=== PATIENT | female | born 1980 | race Caucasian/White ===

== ENCOUNTER 2017-07-08 10:26 | Inpatient (IN) | payer MEDICARE, OTHER ==
[~2017-07-08] VITALS: Ht 167.6 cm; Wt 79.3 kg
[~2017-07-08 10:26] MED LIST: Z.0.NO CURRENT MEDS
[2017-07-08 10:51] VITALS: BP 127/77; PULSE 83; RESP 16; TEMP 98.6
--- NOTE | 2017-07-08 11:37 | PD ---
HPI Chief Complaint: Psychiatric Symptoms Time Seen by Provider: 11:22 Travel History International Travel<30 days: No Contact w/Intl Traveler<30days: No Traveled to known affect area: No History of Present Illness HPI The patient was seen and examined in the presence of the nurse. This patient presents under police Scruggs act. She has been feeling depressed and suicidal. She was found in the backyard with a rope. She put the rope around her neck. She did not actually hang or jump from a height. She does not have any neck pain or symptoms. She denies physical complaint. Her psychiatric symptoms are moderate to severe. No alleviating factors. No exacerbating factors. Duration is several months. She denies any alcohol or drug use today. She admits to drinking a few beers last night. PFSH Past Medical History Blood Disorders: No Depression: Yes Cancer: No Cardiovascular Problems: No Genitourinary: No Immune Disorder: No Musculoskeletal: No Neurologic: No Psychiatric: Yes Reproductive: Yes Respiratory: No ?: Not LMP: 06/16/17 Past Surgical History Other Surgery: Yes (CARPAL TUNNEL SX) Social History Alcohol Use: No Tobacco Use: Yes (3-5 CIGARETTES DAILY) Substance Use: No Allergies-Medications (Allergen,Severity, Reaction): Coded Allergies: bupropion (Unverified Allergy, Severe, 10/30/16) quetiapine (Unverified Allergy, Intermediate, RASH ON THE NECK, 10/30/16) Uncoded Allergies: WELLBUTRIN (Allergy, Mild, Tachycardia, 02/26/09) Reported Meds & Prescriptions Reported Meds & Active Scripts Active No Active Prescriptions or Reported Medications Review of Systems General / Constitutional: No: Fever Eyes: No: Visual changes HENT: No: Headaches Cardiovascular: No: Chest Pain or Discomfort Respiratory: No: Shortness of Breath Gastrointestinal: No: Abdominal Pain Genitourinary: No: Dysuria Musculoskeletal: No: Pain Skin: No Rash Neurologic: No: Weakness Psychiatric: Positive: Depression, Suicidal Ideations Endocrine: No: Polydipsia Hematologic/Lymphatic: No: Easy Bruising Physical Exam Narrative GENERAL: Well-nourished, well-developed patient in no apparent distress. SKIN: Focused skin assessment reveals no rash and nodules. Skin is Warm and dry. HEAD: Atraumatic. Normocephalic. EYES: Pupils equal and round. No scleral icterus. No injection or drainage. ENT: No nasal bleeding or discharge. Mucous membranes pink and moist. NECK: Trachea midline. No JVD. No midline tenderness. No swelling or bruising. There is a minimal erythematous linear iram on the right side CARDIOVASCULAR: Regular rate and rhythm. No murmur appreciated. RESPIRATORY: No accessory muscle use. Clear to auscultation. Breath sounds equal bilaterally. GASTROINTESTINAL: Abdomen soft, non-tender, nondistended. Hepatic and splenic margins not palpable. MUSCULOSKELETAL: No obvious deformities. No clubbing. No cyanosis. No edema. NEUROLOGICAL: Awake and alert. No obvious cranial nerve deficits. Motor grossly within normal limits. Normal speech. PSYCHIATRIC: Depressed flat mood and affect; insight and judgment normal. Data Data Last Documented VS Vital Signs Date Time Temp Pulse Resp B/P (MAP) Pulse Ox O2 Delivery O2 Flow Rate FiO2 07/08/17 10:51 98.6 83 16 127/77 (94) Orders Orders Complete Blood Count With Diff (07/08/17 11:17) Comprehensive Metabolic Panel (07/08/17 11:17) Psych Screen (07/08/17 11:17) Drug Screen, Random Urine (07/08/17 11:17) Alcohol (Ethanol) (07/08/17 11:17) Ed Urine Pregnancytest Poc (07/08/17 11:37) Labs Laboratory Tests Test 07/08/17 10:55 07/08/17 11:36 White Blood Count 7.7 TH/MM3 Red Blood Count 4.90 MIL/MM3 Hemoglobin 15.3 GM/DL Hematocrit 43.1 % Mean Corpuscular Volume 88.1 FL Mean Corpuscular Hemoglobin 31.3 PG Mean Corpuscular Hemoglobin Concent 35.5 % Red Cell Distribution Width 11.9 % Platelet Count 241 TH/MM3 Mean Platelet Volume 9.1 FL Neutrophils (%) (Auto) 67.9 % Lymphocytes (%) (Auto) 24.8 % Monocytes (%) (Auto) 6.8 % Eosinophils (%) (Auto) 0.2 % Basophils (%) (Auto) 0.3 % Neutrophils # (Auto) 5.2 TH/MM3 Lymphocytes # (Auto) 1.9 TH/MM3 Monocytes # (Auto) 0.5 TH/MM3 Eosinophils # (Auto) 0.0 TH/MM3 Basophils # (Auto) 0.0 TH/MM3 CBC Comment DIFF FINAL Differential Comment Blood Urea Nitrogen 14 MG/DL Creatinine 0.78 MG/DL Random Glucose 92 MG/DL Total Protein 7.7 GM/DL Albumin 4.3 GM/DL Calcium Level 9.3 MG/DL Alkaline Phosphatase 63 U/L Aspartate Amino Transf (AST/SGOT) 16 U/L Alanine Aminotransferase (ALT/SGPT) 25 U/L Total Bilirubin 0.4 MG/DL Sodium Level 141 MEQ/L Potassium Level 3.8 MEQ/L Chloride Level 106 MEQ/L Carbon Dioxide Level 29.5 MEQ/L Anion Gap 6 MEQ/L Estimat Glomerular Filtration Rate 82 ML/MIN Ethyl Alcohol Level LESS THAN 3 MG/DL Urine Opiates Screen NEG Urine Barbiturates Screen NEG Urine Amphetamines Screen NEG Urine Benzodiazepines Screen NEG Urine Cocaine Screen NEG Urine Cannabinoids Screen POS MDM Medical Decision Making Medical Screen Exam Complete: Yes Emergency Medical Condition: Yes Medical Record Reviewed: Yes Differential Diagnosis Suicidal ideation, depression, adjustment reaction Narrative Course I have reviewed the patient's electronic medical record. Patient is been here before for suicidal ideation when she tried to cut her wrist I have ordered medical clearance workup to include labs and tox screen Psychiatric evaluation has been ordered as she is here under the Scruggs act Medical workup is negative. is negative. Tox screen positive for marijuana but labs are normal patient is awaiting psychiatric evaluation. Disposition will be per psychiatry. Diagnosis Primary Impression: Depression with suicidal ideation Scripts No Active Prescriptions or Reported Meds Kee Shea MD Jul 08, 2017 11:37
[2017-07-08 11:40] LABS: AUTOMATED NEUTROPHIL # 5.2 TH/MM3 (1.8-7.7); BASOPHIL % 0.3 % (0.0-2.0); EOSINOPHIL % 0.2 % (0.0-4.0); HEMATOCRIT 43.1 % (35.0-46.0); HEMOGLOBIN 15.3 GM/DL (11.6-15.3); LYMPH % 24.8 % (9.0-44.0); LYMPHOCYTE # 1.9 TH/MM3 (1.0-4.8); MEAN CELL VOLUME 88.1 FL (80.0-100.0); MEAN CORPUSCULAR HEMOGLOBIN 31.3 PG (27.0-34.0); MEAN CORPUSCULAR HGB CONC 35.5 % (32.0-36.0); MEAN PLATELET VOLUME 9.1 FL (7.0-11.0); MONO % 6.8 % (0.0-8.0); MONOCYTE # 0.5 TH/MM3 (0-0.9); NEUT % 67.9 % (16.0-70.0); PLATELET COUNT 241 TH/MM3 (150-450); RED CELL DISTRIBUTION WIDTH 11.9 % (11.6-17.2); WHITE BLOOD COUNT 7.7 TH/MM3 (4.0-11.0)
[2017-07-08 11:54] LABS: ALBUMIN 4.3 GM/DL (3.4-5.0); AST (GOT) 16 U/L (15-37); BICARBONATE 29.5 MEQ/L (21.0-32.0); BLOOD UREA NITROGEN 14 MG/DL (7-18); CALCIUM 9.3 MG/DL (8.5-10.1); CHLORIDE 106 MEQ/L (98-107); CREATININE 0.78 MG/DL (0.50-1.00); GLOMERULAR FILTRATION RATE 82 ML/MIN (>89); GLUCOSE,RANDOM 92 MG/DL (74-106); SODIUM (NA) 141 MEQ/L (136-145)
[2017-07-08 11:56] LABS: ALKALINE PHOSPHATASE 63 U/L (45-117); ALT (GPT) 25 U/L (10-53); TOTAL BILIRUBIN ADULT 0.4 MG/DL (0.2-1.0); TOTAL PROTEIN 7.7 GM/DL (6.4-8.2)
--- NOTE | 2017-07-08 17:26 | PD ---
History of Present Illness Chief Complaint: Psychiatric Symptoms Travel History International Travel<30 Days: No Contact w/Intl Traveler<30days: No Known affected area: No History of Present Illness: Patient is a 37 y/o female with three children , who is currently on disability transported to the Emergency Department by the [place] [employer] under a Scruggs Act. Scruggs Act states, " April was found by her daughter in the back yard of the residence putting a rope around her neck. Karen then left the residence in a vehicle with the rope and told her daughter she was going to find a bridge. Maynor has attempted to cut her wrists in the past." Daniela is in a hospital gown, disheveled with poor eye contact. She is oriented to self, her date of and year. She is unable to tell me the President, where she is and when she last ate. Patient is religiously preoccupied and states," the spirit of has touched me and I must repent and go to hell. " She is internally stimulated and states, "there are demons in the room and they are all around me, I see them." She acknowledges that she hears the spirit talking to her in her ears that they are telling her that her life is over." Normal voice for tone, rate and volume. Motor normal. She is guarded, paranoid, delusional and hesitates to answer questions. Her mood is liable and demonstrates flat affect. Judgement is poor. Concentration is poor. Patient is sitting on the bed "rwandan style" and rocking. Patient is a mother of three children:Soo 8 years old, Mykel 13 years old and Neeta 18 years old. Per report through Triage nurse that spoke with daughter Neeta , patient left the home the other night and left the eight year old unattended. Neeta reports that her mother has been declining and that she is taking risks outside of her character. Neeta was the person who witnessed her mother with the rope. Patient states that she has been under the care of [facility] in the past and recalls being on Seroquel and Depakote. She does recall past incidences of suicidal attempts by means of overdose and attempting to hang herself. I was unable to find a record to collaborate this disclosure. Patient does state, " the demons are here and I want to ." Patient discloses that three months ago she was on pain medications for her neck and back which she discontinued. She states that she is currently under no medications and does not have any allergies.Patient states that both her parents were alcoholics. Her mother is and her mother has not mental illness. Patient has an 8th grade education and has not worked in five years. 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 She smokes 1/4 ppd; occasional alcohol ( beer) and admits to marijuana ( no other illicit drugs). Patient discloses a previous arrest as a teenager for assault/battery, possession of marijuana in which charges were dropped. She has no legal issues pending at this time. UDS negative, except for marijuana. I have attempted to call the Hudson Chen at and the daughter Neeta Chen at with no success. Patient is currently unable to make sound decisions. She has poor concentration and poor judgement. Patient is at medium to high risk of self harm. She verbalizes a suicidal plan to place a rope around her neck because the demons have instructed her to do so. Due to the potential for self - harm the patient will be admitted to the inpatient unit on 2600 for further evaluation and treatment. P Dx: Psychosis ; Substance Use PFSH Past Medical History Blood Disorders: No Depression: Yes Cancer: No Cardiovascular Problems: No Genitourinary: No Immune Disorder: No Musculoskeletal: No Neurologic: No Psychiatric: Yes Reproductive: Yes Respiratory: No ?: Not LMP: 06/16/17 Past Surgical History Other Surgery: Yes (CARPAL TUNNEL SX) Psychiatric History Psychiatric History Hx Psychiatric Treatment: HX 2009 IN [facility] History of Inpatient Treatment: Yes Social History Hx Alcohol Use: No Hx Tobacco Use: Yes (3-5 CIGARETTES DAILY) Hx Substance Use: No Substance Use Type: Nicotine/Cigarettes, Prescription Medications Other Substances Used: HYDROCODONE FOR HEADACHE, AND SOMA FROM A FRIEND, XANAX FOR HEADACHE. Hx of Substance Use Treatment: No Family Psychiatric History Patient states she has been under treatment at [facility] in the past and has been on Seroquel and Depakote. Allergies-Medications (Allergen,Severity, Reaction): Coded Allergies: bupropion (Unverified Allergy, Severe, 10/30/16) quetiapine (Unverified Allergy, Intermediate, RASH ON THE NECK, 10/30/16) Uncoded Allergies: WELLBUTRIN (Allergy, Mild, Tachycardia, 02/26/09) Reported Meds & Prescriptions Reported Meds & Active Scripts Active No Active Prescriptions or Reported Medications Mental Status Examination Appearance: Disheveled Consciousness: Alert Orientation: Person, Date/Time Motor Activity: Normal gait Speech: Hesitant Language: Perseveration Fund of Knowledge: Poor Attention and Concentration: Easily Distracted Memory: Impaired Mood: Sad Affect: Flat Thought Process & Associations: Loose associations, Disorganized Thought Content: Ideas of reference, Hallucinations, Thought blocking, Preoccupations (religiously preoccupied) Hallucination Type: Auditory, Visual (seeing demons and hearing adventist comments to take her life) Suicidal Ideation: Yes Suicidal Plan: Yes Suicidal Intention: Yes Homicidal Ideation: No Homicidal Plan: No Homicidal Intention: No Insight: Poor Judgment: Poor MDM Medical Decision Making Medical Record Reviewed: Yes Assessment/Plan Patient is a 37 year old female who presents with auditory and visual hallucinations. Patient is delusional, paranoid and guarded. She recently left her young child at home alone and has been demonstrating poor judgement. She has poor eye contact, internally stimulated and preoccupied with the bible. She states that the demon is telling her to take her life. Patient is at medium to high risk of self harm. Patient will be admitted for further evaluation and treatment. Orders Orders Complete Blood Count With Diff (07/08/17 11:17) Comprehensive Metabolic Panel (07/08/17 11:17) Psych Screen (07/08/17 11:17) Drug Screen, Random Urine (07/08/17 11:17) Alcohol (Ethanol) (07/08/17 11:17) Ed Urine Pregnancytest Poc (07/08/17 11:37) Results Vital Signs Date Time Temp Pulse Resp B/P (MAP) Pulse Ox O2 Delivery O2 Flow Rate FiO2 07/08/17 10:51 98.6 83 16 127/77 (94) Laboratory Tests Test 07/08/17 10:55 07/08/17 11:36 White Blood Count 7.7 Red Blood Count 4.90 Hemoglobin 15.3 Hematocrit 43.1 Mean Corpuscular Volume 88.1 Mean Corpuscular Hemoglobin 31.3 Mean Corpuscular Hemoglobin Concent 35.5 Red Cell Distribution Width 11.9 Platelet Count 241 Mean Platelet Volume 9.1 Neutrophils (%) (Auto) 67.9 Lymphocytes (%) (Auto) 24.8 Monocytes (%) (Auto) 6.8 Eosinophils (%) (Auto) 0.2 Basophils (%) (Auto) 0.3 Neutrophils # (Auto) 5.2 Lymphocytes # (Auto) 1.9 Monocytes # (Auto) 0.5 Eosinophils # (Auto) 0.0 Basophils # (Auto) 0.0 CBC Comment DIFF FINAL Differential Comment Blood Urea Nitrogen 14 Creatinine 0.78 Random Glucose 92 Total Protein 7.7 Albumin 4.3 Calcium Level 9.3 Alkaline Phosphatase 63 Aspartate Amino Transf (AST/SGOT) 16 Alanine Aminotransferase (ALT/SGPT) 25 Total Bilirubin 0.4 Sodium Level 141 Potassium Level 3.8 Chloride Level 106 Carbon Dioxide Level 29.5 Anion Gap 6 Estimat Glomerular Filtration Rate 82 Ethyl Alcohol Level LESS THAN 3 Urine Opiates Screen NEG Urine Barbiturates Screen NEG Urine Amphetamines Screen NEG Urine Benzodiazepines Screen NEG Urine Cocaine Screen NEG Urine Cannabinoids Screen POS Diagnosis Primary Impression: Depression with suicidal ideation Additional Impressions: Psychosis Substance use disorder Admitting Information Admitting Physician Requests: Admit Prescriptions No Active Prescriptions or Reported Meds Condition: Stable Problem Qualifiers Brooke Landa Jul 08, 2017 17:26
[2017-07-08] MEDS ORDERED: MAGNESIUM HYDROXIDE SUSP 30 ML CUP PO PRN (17:45)
[2017-07-08] MEDS ORDERED: ACETAMINOPHEN 325 MG TAB PO PRN (17:45)
[2017-07-08] MEDS ORDERED: ALUMINUM/MAGNESIUM/SIMETH 30 ML CUP PO PRN (17:45)
[2017-07-08] MEDS: NICOTINE 21 MG/24 HR PATCH T-DERMAL SCH (18:00)
[2017-07-08 20:20] VITALS: BP 117/56; PULSE 63; RESP 20; TEMP 97.2; O2SAT 99
[2017-07-09 05:32] VITALS: BP 115/67; PULSE 61; RESP 16; TEMP 97.9; O2SAT 97
[2017-07-09] MEDS: REMOVE OLD PATCH T-DERMAL SCH (09:00)
[2017-07-09] MEDS: NICOTINE 21 MG/24 HR PATCH T-DERMAL SCH (09:00)
[2017-07-09 09:09] LABS: BICARBONATE 26.9 MEQ/L (21.0-32.0); BLOOD UREA NITROGEN 11 MG/DL (7-18); CALCIUM 9.4 MG/DL (8.5-10.1); CHLORIDE 105 MEQ/L (98-107); CREATININE 0.72 MG/DL (0.50-1.00); GLOMERULAR FILTRATION RATE 90 ML/MIN (>89); GLUCOSE,RANDOM 104 MG/DL (74-106); SODIUM (NA) 141 MEQ/L (136-145)
[2017-07-09 09:10] LABS: CHOLESTEROL 195 MG/DL (120-200)
[2017-07-09 09:12] LABS: CHOLESTEROL/ HDL RATIO 3.94 RATIO; HDL CHOLESTEROL 49.4 MG/DL (40.0-60.0); LDL CHOLESTEROL 119 MG/DL (0-99); TRIGLYCERIDES 134 MG/DL (42-150)
--- NOTE | 2017-07-09 14:06 | HHI.HP ---
Provisional Diagnosis Admission Date Jul 08, 2017 at 17:39 [place] I. 1. Schizophrenia, paranoid type Rule out mood disorder with psychotic features. Rule out psychosis due to a substance. 2. Cannabis abuse [place] II. Deferred Certification of Person's Competence To Provide Express and Informed Consent I have personally examined Daniela Chen , a person being served at [facility] on, Jul 09, 2017 14:06. Express and informed consent means consent voluntarily given in writing, by a competent person, after sufficient explanation and disclosure of the subject matter involved to enable the person to make a knowing and willful decision without any element of force, fraud, deceit, duress, or other form of constraint or coercion. This person is 18 years of age or older, is not now known to be incompetent to consent to treatment with a guardian advocate, and does not have a health care surrogate or proxy currently making medical treatment decisions. I have found this person to be one of the following: [x] Competent to provide express and informed consent, as defined above, for voluntary admission to this facility and is competent to provide express and informed consent for treatment. He/she has the consistent capacity to make well reasoned, willful, and knowing decisions concerning his or her medical or mental health treatment. The person fully and consistently understands the purpose of the admission for examination/placement and is fully capable of personally exercising all rights assured [place] Incompetent to provide express and informed consent to voluntary admission, and this is incompetent to provide express and informed consent to treatment. The person must be transferred to involuntary status and a petition for a guardian advocate filed with the Circuit Court. [] Refusing to provide express and informed consent to voluntary admission but is competent to provide express and informed consent for treatment. The person must be discharged or transferred to involuntary status. Form shall be completed within 24 hours of a person's arrival at the receiving facility and filed in the clinical record of each person: 1. Admitted on a voluntary basis 2. Permitted to provide express and informed consent to his/her own treatment 3. Allowed to transfer from involuntary to voluntary status 4. Prior to permitting a person to consent to his or her own treatment after having been previously found incompetent to consent to treatment. History of Present Illness Capacity: Has Capacity Psych Chief Complaint: Psychosis HPI Mr. Chen is a 37-year-old female with a history of bipolar disorder/ schizophrenia who presented under a Scruggs act by law enforcement alleging that the patient's daughter found her in the yard with a rope around her neck. Patient was seen by the psychiatric nurse practitioner in the ED. Reviewing the electronic medical record, I note that the patient was [place] [address] Harris with a diagnosis of bipolar disorder type II and opiate abuse and was stabilized on Seroquel at that time. Patient seen and examined with nurse and bilingual student tutor. On my examination today, the patient presents as initially fairly lucid, however when allowed to speak in an open-ended fashion discloses fairly extensive druze delusion. She tells me, for example, that "mosque is like wearing glasses and going to the store for soda." She articulates a belief that she has a name, Aminata, which gives her special association with the [place]. She says that she came to this realization by "reading this [place] thing on Susie[ism?]." She says that for the last 3 months she has been able to "read the names and spirits of everyone alive 08/10." She reports that she was trying to kill herself prior to admission because she was receiving commands to do so by "the Father of lies." She reports that she is no longer receiving such messages, and she denies SI/HI now, although she seems decidedly unreliable to contract for safety in a less restrictive setting. She believes that she is a "prophetess" of some sort. Mood has been somewhat depressed, although mood symptoms do not seem particularly severe. Sleep and appetite are reportedly fair. Remainder of the psychiatric ROS is negative. No acute physical complaints. Past psychiatric history: The patient reports a history of bipolar disorder/ schizophrenia. She is not currently under the care of a psychiatrist and takes no psychotropic medications. She denies a history of interval psychiatric admissions since 2008. She does report a history of suicide attempt by cutting about 6 years ago. She denies a history of violent behavior. Family history: Patient notes that her mother was similarly afflicted. She denies family history of suicide. Chemical dependency history: The patient reports that historically she has abused opiates but has been clean from any opiates lately. She has been abusing cannabis. Social history: Patient is with 3 children. 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 She is now on disability. She denies any history. Denies any legal history. Denies any access to guns or firearms. Review of Systems ROS Limitations: Psychotic, Poor Historian Except as stated in HPI: all other systems reviewed are Neg Past Family Social History Coded Allergies: bupropion (Unverified Allergy, Severe, 10/30/16) quetiapine (Unverified Allergy, Intermediate, RASH ON THE NECK, 10/30/16) Uncoded Allergies: WELLBUTRIN (Allergy, Mild, Tachycardia, 02/26/09) Past Medical History Patient denies any past medical history. No Active Prescriptions or Reported Meds Current Medications Medications (Trade) Dose Ordered Sig/Cameron Route Start Time Stop Time Status Last Admin (Tylenol) 650 mg Q4H PRN PO 07/08/17 17:45 (Milk Of Magnesia Liq) 30 ml DAILY PRN PO 07/08/17 17:45 (Mag-Al Plus Susp Liq) 30 ml Q6H PRN PO 07/08/17 17:45 (Habitrol 21 Mg Patch.24 Hr) 1 patch DAILY T-DERMAL 07/08/17 18:00 Miscellaneous Information 1 DAILY T-DERMAL 07/09/17 09:00 Patient's Strengths (min. 2) In a monitored setting. Verbally fluent. Physical Exam Physical examination completed by ED provider. On my examination today, the patient appears to be in no acute physical distress. No motoric abnormalities noted. Labs and vitals reviewed: Vital Signs Vital Signs Date Time Temp Pulse Resp B/P (MAP) Pulse Ox O2 Delivery O2 Flow Rate FiO2 07/09/17 05:32 97.9 61 16 115/67 (83) 97 Lab Results Test 07/09/17 07:51 Blood Urea Nitrogen 11 MG/DL Creatinine 0.72 MG/DL Random Glucose 104 MG/DL Calcium Level 9.4 MG/DL Sodium Level 141 MEQ/L Potassium Level 4.2 MEQ/L Chloride Level 105 MEQ/L Carbon Dioxide Level 26.9 MEQ/L Anion Gap 9 MEQ/L Estimat Glomerular Filtration Rate 90 ML/MIN Triglycerides Level 134 MG/DL Cholesterol Level 195 MG/DL LDL Cholesterol 119 MG/DL HDL Cholesterol 49.4 MG/DL Cholesterol/HDL Ratio 3.94 RATIO ED point of care test negative. Mental Status Examination Appearance: Disheveled Consciousness: Alert Orientation: Person, Place (At least) Motor Activity: Other (No motor abnormalities noted) Speech: Unremarkable Language: Adequate Fund of Knowledge: Adequate, Poor Attention and Concentration: Easily Distracted Memory: Impaired (Psychosis interferes) Mood: Other (Depressed) Affect: Flat Thought Process & Associations: Tangential Thought Content: Ideas of reference, Delusional Hallucination Type: Other (Denies AVH presently) Delusion Type: Other (Adventism) Suicidal Ideation: No Suicidal Plan: No Suicidal Intention: No Homicidal Ideation: No Homicidal Plan: No Homicidal Intention: No Insight: Poor Judgment: Poor Assessment & Plan Problem List: (1) Schizophrenia ICD Codes: F20.9 - Schizophrenia, unspecified (2) Cannabis abuse ICD Codes: F12.10 - Cannabis abuse, uncomplicated Assessment & Plan 37-year-old female with psychiatric history as detailed above who presents under Scruggs act. On my examination today, the patient presents with prominent psychotic symptoms. She does report that her mood is somewhat depressed, although affect of symptoms seem secondary. She makes clear that her presenting suicide attempt was driven by command auditory hallucinations from "the father of lies." Consequently, I think it is likely that she suffers chiefly from a primary psychotic disorder, and she does report a history of schizophrenia, although a mood disorder with psychotic features or a psychosis due to substance are also possible. Patient requires psychiatric hospitalization at this time for safety, observation and stabilization. Admit inpatient. Voluntary status. For psychosis initiate Zyprexa Zydis 10 mg at bedtime with plans to titrate to effect. EKG is sinus rhythm and QTC is not prolonged. Atarax as needed for anxiety. Benadryl as needed for sleep. Cogentin as needed for EPS. R/B/A for medications discussed with patient. Patient is presently denying suicidal ideation and so I think it is reasonable to monitor her on the 2600 unit, although we will have a low threshold to transfer her to the higher acuity unit should there be any evidence of worsening psychosis or behavioral deterioration. Vitals every shift. Counselor to see. Collateral information. Disposition planning. Estimated length of stay: 7-9 days. Discharge Planning Pending psychiatric stabilization Request HC Surrog/Guard Advoc?: No (Not at this time) Problem Qualifiers (1) Schizophrenia: Qualified Codes: F20.0 - Paranoid schizophrenia Nirav Denny MD Jul 09, 2017 14:06
[2017-07-09] MEDS ORDERED: hydrOXYzine HCL 50 MG TAB PO PRN (14:15)
[2017-07-09] MEDS ORDERED: BENZTROPINE MESYLATE 1 MG TAB PO PRN (14:15)
[2017-07-09] MEDS ORDERED: diphenhydrAMINE HCL 50 MG CAP PO PRN (14:15)
[2017-07-09] MEDS ORDERED: BENZTROPINE MESYLATE 2 MG/2 ML VIAL IM PRN (14:15)
[2017-07-09 16:06] LABS: HEMOGLOBIN A1C 4.7 % (4.3-6.0)
[2017-07-09] MEDS ORDERED: NICOTINE 21 MG/24 HR PATCH T-DERMAL PRN (17:30)
[2017-07-09 17:32] VITALS: BP 112/68; PULSE 66; RESP 18; TEMP 98.2; O2SAT 99
[2017-07-09] MEDS: OLANZapine ODT 10 MG TAB PO SCH (21:00)
[2017-07-10 05:58] VITALS: BP 97/53; PULSE 70; RESP 14; TEMP 98.1; O2SAT 97
[2017-07-10] MEDS: REMOVE OLD PATCH T-DERMAL SCH (09:00)
--- NOTE | 2017-07-10 09:19 | EKG ---
Date Performed: 07/09/2017 Time Performed: 14:21:59 PTAGE: 37 years EKG: Sinus rhythm NORMAL ECG PREVIOUS TRACING : 02/23/2004 12.19 DOCTOR: Lucas Long Interpretating Date/Time 07/10/2017 09:18:50
--- NOTE | 2017-07-10 10:19 | HHI.PYPN ---
Subjective Chief Complaint: Psychosis Remarks Patient seen and examined with nurse. Chart reviewed. Case discussed with nursing staff who reports patient refused Zyprexa overnight. Patient has been no behavioral problem on the unit though and has denied suicidal ideation. She is noted by staff to be responding to internal stimuli. On my examination today , the patient remains religiously preoccupied. She says that she refused the Zyprexa because "it would not be worth it to me, if you like, to switch from light to darkness." She reports that she hears the voice of Jose G "08/10 he's with me." She denies any commanding voices, except to "repent." No command auditory hallucinations to hurt self/others. Denies any suicidal or homicidal ideation. No physical complaints. Review of Systems ROS Limitations: Psychotic Except as stated in HPI: all other systems reviewed are Neg Mental Status Examination Appearance: Disheveled Consciousness: Alert Orientation: Person, Place (At least) Motor Activity: Other (No motor abnormalities noted) Speech: Unremarkable Language: Adequate Fund of Knowledge: Adequate, Poor Attention and Concentration: Easily Distracted Memory: Impaired (Psychosis interferes) Mood: Appropriate Affect: Appropriate Thought Process & Associations: Circumstantial Thought Content: Delusional Hallucination Type: Auditory (as above) Delusion Type: Other (Gnosticist) Suicidal Ideation: No Suicidal Plan: No Suicidal Intention: No Homicidal Ideation: No Homicidal Plan: No Homicidal Intention: No Insight: Poor Judgment: Poor Results Labs Labs reviewed. Extended urine toxicology pending. EKG NSR with QTc wnl. Vitals/IOs Vital Signs Date Time Temp Pulse Resp B/P (MAP) Pulse Ox O2 Delivery O2 Flow Rate FiO2 07/10/17 05:58 98.1 70 14 97/53 (17) 97 Assessment & Plan Problem List: (1) Schizophrenia ICD Codes: F20.9 - Schizophrenia, unspecified (2) Cannabis abuse ICD Codes: F12.10 - Cannabis abuse, uncomplicated Assessment & Plan I have encouraged adherence with Zyprexa. Continue Zyprexa as ordered. Counselor to call for collateral. Continue to monitor on the inpatient unit. Continue other medications and care as ordered. Justification for Cont. Inpt. Impairment in reality construction. Monitoring for impairment in safety, none noted. Risk for decompensation in less restrictive environment. Discharge Planning Pending psychiatric stabilization. Request HC Surrog/Guard Advoc?: No (Not at this time) Problem Qualifiers (1) Schizophrenia: Qualified Codes: F20.0 - Paranoid schizophrenia Nirav Denny MD Jul 10, 2017 10:19
[2017-07-10 18:26] VITALS: BP 121/67; PULSE 64; RESP 16; TEMP 98; O2SAT 100
[2017-07-10] MEDS: OLANZapine ODT 10 MG TAB PO SCH (20:57)
[2017-07-11 05:27] VITALS: BP 111/62; PULSE 67; RESP 16; TEMP 97.6; O2SAT 97
[2017-07-11 05:28] VITALS: BP 111/62; PULSE 67; RESP 16; TEMP 97.6; O2SAT 97
[2017-07-11] MEDS: REMOVE OLD PATCH T-DERMAL SCH (09:00)
[2017-07-11] MEDS ORDERED: HALOPERIDOL LACTATE 5 MG/ML AMP IM PRN (14:00)
--- NOTE | 2017-07-11 14:00 | HHI.PYPN ---
Subjective Chief Complaint: Psychosis Remarks Patient seen and examined with nurse. Chart reviewed. Case discussed with nursing staff. Patient refused Zyprexa overnight and refused breakfast this morning per nursing report. She continues to respond to internal stimuli in interactions with nursing. On my examination today, the patient remains internally preoccupied although she insists her hallucinations have "cleared up. " She denies suicidal or homicidal ideation but seems distinctly unreliable to contract for safety. When I ask her about her presenting suicide attempt she replies in a nonsensical fashion saying "that's an 'I need to clean the house' issue." She intends to continue to refuse medications as she does not feel that she needs them. No physical complaints. With patient's permission, obtained collateral information from Phoenix Chen at [phone]. He notes patient has been experiencing psychotic symptoms x ~2 years. He reports patient has a history of opiate dependence and , while intoxicated, had an affair. He notes that patient disclosed this affair to him on De León's day this year, and her recent deterioration seems to have begun shortly thereafter. He reports patient has a previous suicide attempt by cutting. He does report patient has tried Seroquel in the past for her symptoms but notes that her adherence with pharmacotherapy in the community is spotty. He feels that patient is in need of additional stabilization. He is agreeable to acting as healthcare surrogate and is in agreement with the plan as outlined below. Review of Systems ROS Limitations: Psychotic, Poor Historian Except as stated in HPI: all other systems reviewed are Neg Mental Status Examination Appearance: Disheveled Consciousness: Alert Orientation: Person, Place (At least) Motor Activity: Other (No abnormal motor movements noted.) Speech: Unremarkable Language: Adequate Fund of Knowledge: Adequate, Poor Attention and Concentration: Easily Distracted Memory: Impaired (Psychosis continues to interfere) Mood: Appropriate Affect: Appropriate Thought Process & Associations: Tangential Thought Content: Hallucinations, Delusional Hallucination Type: Other (Internally preoccupied) Delusion Type: Other (Mormon) Suicidal Ideation: No Suicidal Plan: No Suicidal Intention: No Homicidal Ideation: No Homicidal Plan: No Homicidal Intention: No Insight: Poor Judgment: Poor Results Labs Labs reviewed. EKG normal sinus rhythm with QTC within normal limits. Vitals/IOs Vital Signs Date Time Temp Pulse Resp B/P (MAP) Pulse Ox O2 Delivery O2 Flow Rate FiO2 07/11/17 05:28 97.6 67 16 111/62 (72) 97 Assessment & Plan Problem List: (1) Schizophrenia ICD Codes: F20.9 - Schizophrenia, unspecified (2) Cannabis abuse ICD Codes: F12.10 - Cannabis abuse, uncomplicated Assessment & Plan With the benefit of further observation, it is my judgment that the patient is not capacitated to consent for ongoing admission, nor can she consent for treatment as she is unable to understand her options and negotiate treatment secondary to psychiatric illness. I remain deeply concerned that the patient would be at high risk for self-harm if she were discharged from the hospital unmedicated. I have initiated a petition for involuntary psychiatric hospitalization and will consult for second opinion. I will additionally request healthcare surrogate and guardian advocate. Given reported poor adherence with medication treatment outside of the hospital, I think that the patient would likely benefit from an agent within available long-acting injectable. I will discontinue the Zyprexa and start Risperdal M tabs 1 mg twice daily with Haldol IM backup should the patient refuse Risperdal. Consent provided by a healthcare surrogate. We will plan to titrate to effect. Continue to monitor on the inpatient unit. Continue other medications and care as ordered. Justification for Cont. Inpt. Medication changes. Impairment in reality construction. High risk for decompensation in less restrictive environment. Discharge Planning Pending psychiatric stabilization. Request HC Surrog/Guard Advoc?: Yes Problem Qualifiers (1) Schizophrenia: Qualified Codes: F20.0 - Paranoid schizophrenia Nirav Denny MD Jul 11, 2017 14:00
[2017-07-11] MEDS: risperiDONE ODT 1 MG TAB PO SCH (21:03)
[2017-07-12] MEDS: REMOVE OLD PATCH T-DERMAL SCH (09:00)
[2017-07-12] MEDS: risperiDONE ODT 1 MG TAB PO SCH ×2 (10:25→21:00)
--- NOTE | 2017-07-12 11:34 | PD.PSY.CON ---
Provisional Diagnosis Admission Date Jul 08, 2017 at 17:39 Rogers I. 1. Schizophrenia, paranoid type Rule out mood disorder with psychotic features. Rule out psychosis due to a substance. 2. Cannabis abuse Rogers II. Deferred History of Present Illness Service Psychiatry Consult Requested By Psychiatry Reason for Consult Second opinion Primary Care Physician Unknown HPI Mr. Chen is a 37-year-old female with a history of bipolar disorder/ schizophrenia who presented under a [place] act by law enforcement alleging that the patient's daughter found her in the yard with a rope around her neck. Patient was seen by the psychiatric nurse practitioner in the ED. Reviewing the electronic medical record, I note that the patient was [place] [address] Harris with a diagnosis of bipolar disorder type II and opiate abuse and was stabilized on Seroquel at that time.Patient seen and examined with nurse and practical nursing teacher. On my examination today, the patient presents as initially fairly lucid, however when allowed to speak in an open-ended fashion discloses fairly extensive gnosticism delusion. She tells me, for example, that "mormonism is like wearing glasses and going to the store for soda." She articulates a belief that she has a name, Aminata, which gives her special association with the Wilson Liset. She says that she came to this realization by "reading this [place] thing on Susie[ism?]." She says that for the last 3 months she has been able to "read the names and spirits of everyone alive 08/10. " She reports that she was trying to kill herself prior to admission because she was receiving commands to do so by "the Father of lies." She reports that she is no longer receiving such messages, and she denies SI/HI now, although she seems decidedly unreliable to contract for safety in a less restrictive setting. She believes that she is a "prophetess" of some sort. Mood has been somewhat depressed, although mood symptoms do not seem particularly severe. Sleep and appetite are reportedly fair. Remainder of the psychiatric ROS is negative. No acute physical complaints. The patient is a 37 years old woman, domiciled in [place] with her and 3 children, unemployed, supported by [facility], with psychiatric history of schizophrenia, 3 previous psychiatric hospitalizations, 2 previous suicidal attempts, not taking any medications in these days, no significant medical history, who was brought to the hospital on the Scruggs act y law enforcement alleging that the patient's daughter found her in the yard with a rope around her neck. Patient was seen by the psychiatric nurse practitioner in the ED. patient was consulted to me for second opinion. On my psychiatric evaluation today the patient is found eating her breakfast, she is calm, cooperative. The patient reports that she is here in the hospital because she tried to commit suicide by hanging. Patient reports that she has been very stressed, that are many things going on in her life, and she feels like a failure. Patient has a very flat affect, seems to be internally preoccupied, kind of disorganized. Patient would not elaborate about circumstances of her depression and stressors. Review of Systems Constitutional: DENIES: Diaphoretic episodes, Fatigue, Fever, Weight gain, Weight loss, Chills, Dizziness, Change in appetite, Night Sweats Endocrine: DENIES: Abnorml menstrual pattern, Heat/cold intolerance, Polydipsia , Polyuria, Polyphagia Eyes: DENIES: Blurred vision, Diplopia, Eye inflammation, Eye pain, Vision loss , Photosensitivity, Double Vision Ears, nose, mouth, throat: DENIES: Tinnitus, Hearing loss, Vertigo, Nasal discharge, Oral lesions, Throat pain, Hoarseness, Ear Pain, Running Nose, Epistaxis, Sinus Pain, Toothache, Odynophagia Respiratory: DENIES: Apneas, Cough, Snoring, Wheezing, Hemoptysis, Sputum production, Shortness of breath Cardiovascular: DENIES: Chest pain, Palpitations, Syncope, Dyspnea on Exertion , PND, Lower Extremity Edema, Orthopnea, Claudication Gastrointestinal: DENIES: Abdominal pain, Black stools, Bloody stools, Constipation, Diarrhea, Nausea, Vomiting, Difficulty Swallowing, Anorexia Genitourinary: DENIES: Abnormal vaginal bleeding, Dysmenorrhea, Dyspareunia, Sexual dysfunction, Urinary frequency, Urinary incontinence, Urgency, Hematuria , Dysuria, Nocturia, Vaginal discharge Musculoskeletal: DENIES: Joint pain, Muscle aches, Stiffness, Joint Swelling, Back pain, Neck pain Integumentary: DENIES: Abnormal pigmentation, Pruritus, Rash, Nail changes, Breast masses, Breast skin changes, Nipple discharge Hematologic/lymphatic: DENIES: Bruising, Lymphadenopathy Immunologic/allergic: DENIES: Eczema, Urticaria Neurologic: DENIES: Abnormal gait, Headache, Localized weakness, Paresthesias, Seizures, Speech Problems, Tremor, Poor Balance Psychiatric: DENIES: Anxiety, Confusion, Mood changes, Depression, Hallucinations, Agitation, Suicidal Ideation, Homicidal Ideation, Delusions Past Family Social History Coded Allergies: bupropion (Unverified Allergy, Severe, 10/30/16) quetiapine (Unverified Allergy, Intermediate, RASH ON THE NECK, 10/30/16) Uncoded Allergies: WELLBUTRIN (Allergy, Mild, Tachycardia, 02/26/09) No Active Prescriptions or Reported Meds Current Medications Medications (Trade) Dose Ordered Sig/Cameron Route Start Time Stop Time Status Last Admin (Tylenol) 650 mg Q4H PRN PO 07/08/17 17:45 (Milk Of Magnesia Liq) 30 ml DAILY PRN PO 07/08/17 17:45 (Mag-Al Plus Susp Liq) 30 ml Q6H PRN PO 07/08/17 17:45 Miscellaneous Information 1 DAILY T-DERMAL 07/09/17 09:00 (Atarax) 50 mg Q6H PRN PO 07/09/17 14:15 (Cogentin) 1 mg Q12HR PRN PO 07/09/17 14:15 (Cogentin Inj) 1 mg Q12HR PRN IM 07/09/17 14:15 (Benadryl) 50 mg HS PRN PO 07/09/17 14:15 (Habitrol 21 Mg Patch.24 Hr) 1 patch DAILY PRN T-DERMAL 07/09/17 17:30 (risperDAL M-TAB) 1 mg Q12HR PO 07/11/17 21:00 07/12/17 10:25 (Haldol Inj) 5 mg BID PRN IM 07/11/17 14:00 Social History Patient was born and raised in [place], she lives in [place] here with her and 3 kids, unemployed, supported by [employer], her highest level of education is a GED Patient's Strengths (min. 2) In a monitored setting. Verbally fluent. Physical Exam Vital Signs Vital Signs Date Time Temp Pulse Resp B/P (MAP) Pulse Ox O2 Delivery O2 Flow Rate FiO2 07/11/17 05:28 97.6 67 16 111/62 (78) 97 Mental Status Examination Appearance: Disheveled Consciousness: Alert Orientation: Person, Place (At least) Motor Activity: Other (No abnormal motor movements noted.) Speech: Unremarkable Language: Adequate Fund of Knowledge: Adequate, Poor Attention and Concentration: Easily Distracted Memory: Impaired (Psychosis continues to interfere) Mood: Appropriate Affect: Appropriate Thought Process & Associations: Tangential Thought Content: Hallucinations, Delusional Hallucination Type: Other (Internally preoccupied) Delusion Type: Other (Yarsanism) Suicidal Ideation: No Suicidal Plan: No Suicidal Intention: No Homicidal Ideation: No Homicidal Plan: No Homicidal Intention: No Insight: Poor Judgment: Poor Assessment & Plan Problem List: (1) Schizophrenia ICD Codes: F20.9 - Schizophrenia, unspecified Assessment & Plan: I have seen and examined this woman, reviewed documentation , I completely agree and concur with Dr. Denny assessment and plan. Consult appreciated. (2) Cannabis abuse ICD Codes: F12.10 - Cannabis abuse, uncomplicated Assessment & Plan Estimated LOS: days Request HC Surrog/Guard Advoc?: Yes Problem Qualifiers (1) Schizophrenia: Qualified Codes: F20.0 - Paranoid schizophrenia Clarence Buck MD Jul 12, 2017 11:34
--- NOTE | 2017-07-12 14:03 | HHI.PYPN ---
Subjective Chief Complaint: Psychosis Remarks Patient seen and examined with nurse. Chart reviewed. Case discussed with nursing staff who reports patient has been observed by staff peering around doors in a suspicious fashion. Case discussed in treatment team. On my examination today, the patient denies AVH but is noted to be muttering to herself during the interview. She does not verbalize any rastafari preoccupation, but I suspect that this is still ongoing. She denies SI/HI. She did accept her Risperdal PO this morning. No side effects from medications. No physical complaints. Review of Systems ROS Limitations: Psychotic Except as stated in HPI: all other systems reviewed are Neg Mental Status Examination Appearance: Appropriate Consciousness: Alert Orientation: Person, Place (At least) Motor Activity: Other (No motoric abnormalities noted) Speech: Unremarkable Language: Adequate Fund of Knowledge: Adequate, Poor Attention and Concentration: Adequate Memory: Unremarkable Mood: Appropriate Affect: Appropriate Thought Process & Associations: Intact Thought Content: Hallucinations Hallucination Type: Other (Remains internally stimulated) Delusion Type: Other (Suspect ongoing rastafari delusions) Suicidal Ideation: No Suicidal Plan: No Suicidal Intention: No Homicidal Ideation: No Homicidal Plan: No Homicidal Intention: No Insight: Poor Judgment: Poor Results Labs Labs reviewed. Extended urine toxicology reveals only cannabinoids. Vitals/IOs Vital Signs Date Time Temp Pulse Resp B/P (MAP) Pulse Ox O2 Delivery O2 Flow Rate FiO2 07/11/17 05:28 97.6 67 16 111/62 (78) 97 Assessment & Plan Problem List: (1) Schizophrenia ICD Codes: F20.9 - Schizophrenia, unspecified (2) Cannabis abuse ICD Codes: F12.10 - Cannabis abuse, uncomplicated Assessment & Plan Titrate Risperdal over the weekend to target psychotic symptoms. To consider long-acting injectable. Continue to monitor on the inpatient unit. Continue other medications and care as ordered. Justification for Cont. Inpt. Medication changes. Impairment in reality construction. Risk for decompensation in less restrictive environment. Discharge Planning Pending psychiatric stabilization. Request HC Surrog/Guard Advoc?: Yes Problem Qualifiers (1) Schizophrenia: Qualified Codes: F20.0 - Paranoid schizophrenia Nirav Denny MD Jul 12, 2017 14:03
--- NOTE | 2017-07-12 16:12 | PD.TTN ---
Patient Problems 1. Discharge planning 2. Medication compliance 3. Knowledge deficit 4. Lack of coping skills Progress Toward Goals Provider Present: Dr. Deborah Denny Provider Input: 07/12/17 - an involuntary petition has been initiated by Dr. Denny. Patient has been prescribed Risperdal. Per patient's , the patient has heard voices for years. Psychiatric Counselors Present: CECILE Shrestha Psych Therapist Input: 07/12/17 - Patient remains pleasant and cooperative. She remains religiously preoccupied and appears to be responding to internal stimuli. Group Spec/RT/OT/MILLS Present: GENE Jacobson Group Spec/RT/OT/MILLS Input: 07/12/17 - Select participation. Discharge Plan [facility] 07/12/17 - Patient will return home following discharge and she will follow with [facility]. Documentation Scribe: CECILE Shrestha Date Resolved: Jul 12, 2017 Shana Clarke Jul 12, 2017 16:12
[2017-07-12 18:34] VITALS: BP 115/59; PULSE 84; RESP 18; TEMP 97.9; O2SAT 98
[2017-07-13 05:45] VITALS: BP 112/53; PULSE 79; RESP 18; TEMP 98.1; O2SAT 97
[2017-07-13] MEDS: REMOVE OLD PATCH T-DERMAL SCH (09:00)
[2017-07-13] MEDS: risperiDONE ODT 1 MG TAB PO SCH ×2 (09:06→20:41)
--- NOTE | 2017-07-13 12:24 | HHI.PYPN ---
Subjective Chief Complaint: Psychosis Remarks Reviewed electronic medical record discussed case with staff. Her nurse reports that she seems to be doing much better today. Follow-up was conducted in patient's room with nurse present. Patient is alert and oriented 4. She denies any side effects from her medication. She does state that she had a headache earlier which is now gone. She reports that she has had a good appetite. She is not appear to be internally stimulated and there is no indication of thought blocking at this time. Mental Status Examination Appearance: Appropriate Consciousness: Alert Orientation: Person, Place (At least) Motor Activity: Other (No motoric abnormalities noted) Speech: Unremarkable Language: Adequate Fund of Knowledge: Adequate, Poor Attention and Concentration: Adequate Memory: Unremarkable Mood: Appropriate Affect: Appropriate Thought Process & Associations: Intact Thought Content: Hallucinations Hallucination Type: Other (Remains internally stimulated) Delusion Type: Other (Suspect ongoing lutheran delusions) Suicidal Ideation: No Suicidal Plan: No Suicidal Intention: No Homicidal Ideation: No Homicidal Plan: No Homicidal Intention: No Insight: Poor Judgment: Poor Results Vitals/IOs Vital Signs Date Time Temp Pulse Resp B/P (MAP) Pulse Ox O2 Delivery O2 Flow Rate FiO2 07/13/17 05:45 98.1 79 18 112/53 (72) 97 Intake and Output 07/13/17 07/13/17 07/14/17 08:00 16:00 00:00 Intake Total 480 ml Balance 480 ml Assessment & Plan Problem List: (1) Schizophrenia ICD Codes: F20.9 - Schizophrenia, unspecified (2) Cannabis abuse ICD Codes: F12.10 - Cannabis abuse, uncomplicated Assessment & Plan Estimated LOS: Continue with treatment plan as ordered. Possible that patient may be discharged within the next few days, she will be reevaluated by her psychiatrist on Saturday. Days Justification for Cont. Inpt. Moving this patient to a lower level care would likely result in a decompensation at this time. Request HC Surrog/Guard Advoc?: Yes Problem Qualifiers (1) Schizophrenia: Qualified Codes: F20.0 - Paranoid schizophrenia Nuria Hobson Jul 13, 2017 12:24
[2017-07-13 18:16] VITALS: BP 122/59; PULSE 80; RESP 18; TEMP 98.3; O2SAT 100
[2017-07-14 05:18] VITALS: BP 108/54; PULSE 74; RESP 17; TEMP 98.3; O2SAT 97
[2017-07-14] MEDS: risperiDONE ODT 1 MG TAB PO SCH ×2 (09:00→21:00)
[2017-07-14] MEDS: REMOVE OLD PATCH T-DERMAL SCH (09:00)
--- NOTE | 2017-07-14 11:41 | HHI.PYPN ---
Subjective Chief Complaint: Psychosis Remarks Reviewed electronic medical record and discussed case with staff. Follow-up conducted in the siu with nurse present. Patient reports that she slept well and has a good appetite. Her nurse reported earlier today she did wake up irritable. However, her medication was increased yesterday by Dr. Denny. At this time her mood seems good and her affect euthymic. Mental Status Examination Appearance: Appropriate Consciousness: Alert Orientation: Person, Place (At least) Motor Activity: Other (No motoric abnormalities noted) Speech: Unremarkable Language: Adequate Fund of Knowledge: Adequate, Poor Attention and Concentration: Adequate Memory: Unremarkable Mood: Appropriate Affect: Appropriate Thought Process & Associations: Intact Thought Content: Hallucinations Hallucination Type: Other (Remains internally stimulated) Delusion Type: Other (Suspect ongoing jain delusions) Suicidal Ideation: No Suicidal Plan: No Suicidal Intention: No Homicidal Ideation: No Homicidal Plan: No Homicidal Intention: No Insight: Poor Judgment: Poor Results Vitals/IOs Vital Signs Date Time Temp Pulse Resp B/P (MAP) Pulse Ox O2 Delivery O2 Flow Rate FiO2 07/14/17 05:18 98.3 74 17 108/54 (72) 97 Intake and Output 07/14/17 07/14/17 07/15/17 08:00 16:00 00:00 Intake Total 120 ml Balance 120 ml Assessment & Plan Problem List: (1) Schizophrenia ICD Codes: F20.9 - Schizophrenia, unspecified (2) Cannabis abuse ICD Codes: F12.10 - Cannabis abuse, uncomplicated Assessment & Plan Estimated LOS: Continue with treatment plan as ordered. Attending psychiatrist will reevaluate tomorrow. Days Justification for Cont. Inpt. Moving this patient to a lower level of care would likely result in decompensation. Request HC Surrog/Guard Advoc?: Yes Problem Qualifiers (1) Schizophrenia: Qualified Codes: F20.0 - Paranoid schizophrenia JoceNuria ARNP Jul 14, 2017 11:41
[2017-07-14 18:18] VITALS: BP 117/82; PULSE 73; RESP 17; TEMP 98.7; O2SAT 100
[2017-07-15 05:52] VITALS: BP 107/54; PULSE 71; RESP 14; TEMP 98.2; O2SAT 96
[2017-07-15] MEDS: REMOVE OLD PATCH T-DERMAL SCH (08:30)
[2017-07-15] MEDS: risperiDONE ODT 1 MG TAB PO SCH ×2 (08:30→20:21)
--- NOTE | 2017-07-15 11:08 | HHI.PYPN ---
Subjective Chief Complaint: Psychosis Remarks Patient seen and examined with nurse. Chart reviewed. Case discussed with nursing staff who reports patient has been no behavioral problem on the unit. On my examination today, the patient describes herself as feeling "peaceful." She denies any suicidal ideation. Denies any audiovisual hallucinations. No jew preoccupation today. Denies side effects from medications except she does feel a little bit tired, tolerable. No physical complaints. She is not interested in long-acting injectable antipsychotic. Spoke with patient's /healthcare surrogate over the phone this afternoon. He visited with patient over the weekend and feels that she is improving and would feel comfortable with having her return home tomorrow. I did discuss the possibility of long-acting injectable antipsychotic with patient 's , and he would like to discuss the options with patient herself. Review of Systems Except as stated in HPI: all other systems reviewed are Neg Mental Status Examination Appearance: Appropriate Consciousness: Alert Orientation: Person, Place, Date/Time (Approximate) Motor Activity: Other (No motor abnormalities noted) Speech: Unremarkable Language: Adequate Fund of Knowledge: Adequate Attention and Concentration: Adequate Memory: Unremarkable Mood: Appropriate Affect: Appropriate Thought Process & Associations: Intact, Linear Thought Content: Appropriate Hallucination Type: None Delusion Type: None Suicidal Ideation: No Suicidal Plan: No Suicidal Intention: No Homicidal Ideation: No Homicidal Plan: No Homicidal Intention: No Insight: Poor Judgment: Poor Results Labs Labs reviewed Vitals/IOs Vital Signs Date Time Temp Pulse Resp B/P (MAP) Pulse Ox O2 Delivery O2 Flow Rate FiO2 07/15/17 05:52 98.2 71 14 107/54 (95) 96 Assessment & Plan Problem List: (1) Schizophrenia ICD Codes: F20.9 - Schizophrenia, unspecified (2) Cannabis abuse ICD Codes: F12.10 - Cannabis abuse, uncomplicated Assessment & Plan Patient improving with Risperdal therapy. Continue Risperdal as ordered. To consider long-acting injectable antipsychotic. Continue other medications and care as ordered. Justification for Cont. Inpt. Risk for decompensation Discharge Planning Possible discharge tomorrow. Case discussed with counselor. Request HC Surrog/Guard Advoc?: Yes Problem Qualifiers (1) Schizophrenia: Qualified Codes: F20.0 - Paranoid schizophrenia Nirav Denny MD Jul 15, 2017 11:08
[2017-07-15 18:03] VITALS: BP 122/54; PULSE 94; RESP 15; TEMP 98.1; O2SAT 97
[2017-07-16 05:40] VITALS: BP 103/58; PULSE 72; RESP 17; TEMP 98; O2SAT 97
[2017-07-16] MEDS: risperiDONE ODT 1 MG TAB PO SCH (08:08)
[2017-07-16] MEDS: REMOVE OLD PATCH T-DERMAL SCH (08:11)
--- NOTE | 2017-07-16 10:06 | PD.TTN ---
Patient Problems 1. Discharge planning 2. Medication compliance 3. Knowledge deficit 4. Lack of coping skills Progress Toward Goals Provider Present: Dr. Deborah Denny Provider Input: 07/16/17 - Dr. Denny reported he has spoken to the patient's about a residential injectable. The patient is oppesed to receiving this injection. 07/12/17 - an involuntary petition has been initiated by Dr. Denny. Patient has been prescribed Risperdal. Per patient's , the patient has heard voices for years. Psychiatric Counselors Present: CECILE Shrestha Psych Therapist Input: 07/16/17 - Patient remains cooperative and compliant with medications. She reports that she does not want a long acting injectable. Patient continues to present as religioulsy preoccupied. 07/12/17 - Patient remains pleasant and cooperative. She remains religiously preoccupied and appears to be responding to internal stimuli. Group Spec/RT/OT/MILLS Present: GENE Jacobson Group Spec/RT/OT/MILLS Input: 07/16/17 - Patient attends groups and is appropriate. She keeps to herself and remains religiously preoccupied. 07/12/17 - Select participation. Discharge Plan [facility] 07/12/17 - Patient will return home following discharge and she will follow with [facility]. Documentation Scribe: CECILE Shrestha Date Resolved: July 16, 2017 Shana Clarke July 16, 2017 10:05
[2017-07-16] MEDS ORDERED: RISP2TAB2 PO (10:26)
--- NOTE | 2017-07-16 10:26 | HHI.DS ---
Psychiatry Discharge Summary Inpatient Psychiatric care?: Yes Advance Directive: No Reason Not Provided: Due to Patient Condition Mental Health AdvanceDirective: No Health Care Proxy: No Admission Admission Date Jul 08, 2017 at 17:39 Admission Diagnosis: (1) Schizophrenia ICD Code: F20.9 - Schizophrenia, unspecified (2) Cannabis abuse ICD Code: F12.10 - Cannabis abuse, uncomplicated Brief History Mr. Chen is a 37-year-old female with a history of bipolar disorder/ schizophrenia who presented under a [employer] act by law enforcement alleging that the patient's daughter found her in the yard with a rope around her neck. Patient was seen by the psychiatric nurse practitioner in the ED. Reviewing the electronic medical record, I note that the patient was admitted [place] [address] Harris with a diagnosis of bipolar disorder type II and opiate abuse and was stabilized on Seroquel at that time.Patient seen and examined with nurse and nursing services manager. On my examination today, the patient presents as initially fairly lucid, however when allowed to speak in an open-ended fashion discloses fairly extensive mosque delusion. She tells me, for example, that "shinto is like wearing glasses and going to the store for soda." She articulates a belief that she has a name, Aminata, which gives her special association with the [place]. She says that she came to this realization by "reading this [place] thing on Susie[ism?]." She says that for the last 3 months she has been able to "read the names and spirits of everyone alive 08/10. " She reports that she was trying to kill herself prior to admission because she was receiving commands to do so by "the Father of lies." She reports that she is no longer receiving such messages, and she denies SI/HI now, although she seems decidedly unreliable to contract for safety in a less restrictive setting. She believes that she is a "prophetess" of some sort. Mood has been somewhat depressed, although mood symptoms do not seem particularly severe. Sleep and appetite are reportedly fair. Remainder of the psychiatric ROS is negative. No acute physical complaints. Tobacco Use In Past 30 Days: Cigarettes But Not Daily Alcohol Use: Monthly or Less Hospital Course Patient was admitted to a locked, inpatient psychiatric unit. Appropriate precautions were in place throughout patient's hospital stay. Patient was seen and examined on the unit by psychiatry and also visited by counselor. Psychotropic medications were adjusted. Patient tolerated medications well without side effects. Patient had improvement in presenting psychiatric symptomatology during the course of her hospital stay. There was no evidence of any suicidality or homicidality on the inpatient unit. There was no evidence of self-care deficit. Patient remained in behavioral control and became more compliant with medications as treatment progressed. Collateral information was obtained from the patient's . On the day of discharge: Patient seen and examined with nurse. Chart reviewed. Case discussed with nursing staff. No behavioral issues noted overnight. Case discussed in treatment team. On my examination today, the patient is requesting discharge from the inpatient psychiatric unit today. She denies any suicidal or homicidal ideation, intent or plan and contracts for safety. I can elicit no depressive or hypomanic/manic symptoms. She denies any audiovisual hallucinations. I can elicit no delusional beliefs. She denies any side effects from medications besides some mild tiredness, tolerable. She tells me "I see the value [in taking medications]. No physical complaints. I have spoken with patient's on the day of discharge, and he reports that he had a visit with patient last night and is comfortable having the patient return home today. Patient and did discuss the possibility of initiating a long-acting injectable, but both presently decline, and so patient was not started on a long-acting injectable prior to discharge. I have recommended considering this agent on an outpatient basis, particularly if medication adherence seems problematic. Suicide and violence risk assessment on day of discharge both suggest lower imminent risk from mental illness and the patient's level of function is adequate for outpatient care. The patient no longer meets criteria for involuntary psychiatric hospitalization. She is requesting discharge from the inpatient psychiatric unit today, and I have no basis to retain her over her objection. Patient will be discharged today with psychiatric follow-up as arranged by counselor. Patient is also to follow up with primary care. I have counseled the patient to abstain from substances of abuse. I have counseled the patient regarding warning signs for need to return to the psychiatric emergency room as part of a general safety plan. Results Blood Pressure 103 / 58 Vital Signs Date Time Temp Pulse Resp B/P (MAP) Pulse Ox O2 Delivery O2 Flow Rate FiO2 07/16/17 05:40 98.0 72 17 103/58 (73) 97 Laboratory Results Test 07/09/17 07:51 Cholesterol Level 195 MG/DL (120-200) HDL Cholesterol 49.4 MG/DL (40.0-60.0) Hemoglobin A1c 4.7 % (4.3-6.0) LDL Cholesterol 119 MG/DL (0-99) Triglycerides Level 134 MG/DL (42-150) Summary of Procedures None done Imaging None done Pending results at discharge: No Medications # of Antipsychotic meds at D/C: 1 Approp Antipsych med options 1 - Minimum of three failed multiple trials of monotherapy. 2 - Documented plan to taper to monotherapy due to previous use of multiple meds OR cross-taper in progress at D/C. 3 - Documentation of augmentation of Clozapine. 4 - Justification other than those listed in allowable values 1-3, document here : Discharge Discharge Date: July 16, 2017 Discharge Diagnosis: (1) Schizophrenia Diagnosis: Principal (Improved versus admission) ICD Code: F20.9 - Schizophrenia, unspecified (2) Cannabis abuse Diagnosis: Secondary (Counseled to quit) ICD Code: F12.10 - Cannabis abuse, uncomplicated Pt Condition on Discharge: Stable Discharge Disposition: Discharge Home Discharge Instructions Diet Instructions: As Tolerated, No Restrictions Activities you can perform: Weight Bearing as Philip Scheduled Appointment: As per counselors notes New Medications: Risperidone (Risperidone) 2 Mg Tab 2 MG PO BID for Mental Health for 15 Days, TAB 1 Refill Discharge Time > 30 minutes Mental Status Examination Appearance: Appropriate Consciousness: Alert Orientation: x4 Motor Activity: Normal gait, Other (No hand tremor, no cogwheeling, no dystonia , no dyskinesia, no other motor abnormalities noted) Speech: Unremarkable Language: Adequate Fund of Knowledge: Adequate Attention and Concentration: Adequate Memory: Unremarkable Mood: Appropriate Affect: Appropriate Thought Process & Associations: Intact, Logical, Linear Thought Content: Appropriate Hallucination Type: None Delusion Type: None Suicidal Ideation: No Suicidal Plan: No Suicidal Intention: No Homicidal Ideation: No Homicidal Plan: No Homicidal Intention: No Mental Status Exam Remarks Insight and judgment are fair Discharge/Advance Care Plan Health Problems: (1) Schizophrenia (2) Cannabis abuse Goals to promote your health * To prevent worsening of your condition and complications * To maintain your health at the optimal level Directions to meet your goals Take your medications as prescribed Follow your dietary instruction Follow activity as directed Keep your appointments as scheduled Take your immunizations and boosters as scheduled If your symptoms worsen call your PCP, if no PCP go to Urgent Care Center or Emergency Room For 08/10 questions related to your inpatient stay or results of tests pending at discharge, please contact Dr. Nirav Denny at Smoking is Dangerous to Your Health. Avoid second hand smoking Problem Qualifiers (1) Schizophrenia: Qualified Codes: F20.0 - Paranoid schizophrenia Nirav Denny MD July 16, 2017 10:26
== END 2017-07-16 14:15 | disposition home or self-care (01) | DRG 885 ==
LOC: NEPD 10:26 → NEDA 17:39 → H260 20:51
PROVIDERS: ADMIT Psychiatry & Neurology Psychiatry; ATTEND Psychiatry & Neurology Psychiatry
DX: F20.0 Paranoid schizophrenia (principal); F31.81 Bipolar II disorder; R45.851 Suicidal ideations; R51 Headache; F12.10 Cannabis abuse, uncomplicated; F17.210 Nicotine dependence, cigarettes, uncomplicated; Z81.1 Family history of alcohol abuse and dependence; Z91.14 Patient's other noncompliance with medication regimen; Z91.5 Personal history of self-harm
CPT/HCPCS: 80048; 80053; 80061; 80307; 83036; 84703; 85025; 93005; 99285; G0481